=== PATIENT | female | born 1995 | race Two or more races ===

== ENCOUNTER 2016-11-29 16:38 | Outpatient (CLI) | payer OTHER ==
[~2016-11-29] VITALS: Ht 167.6 cm; Wt 53.4 kg
[2016-11-29 16:46] VITALS: Ht 167.6 cm; Wt 53.4 kg
[2016-11-29] MEDS ORDERED: LACTATED RINGER'S 1,000 ML IV* SCH (18:00)
[2016-11-29 18:38] LABS: ADD SCAN DIFF NO
[2016-11-29 18:39] LABS: BASOPHILS % 0.1 % (0.0-2.0); EOSINOPHILS % 0.1 % (0.0-7.0); HEMATOCRIT 30.4 % (37.0-47.0); HEMOGLOBIN 10.6 g/dl (12.0-16.0); LYMPHOCYTES # 0.7 10^3/ul (0.8-2.9); LYMPHOCYTES % 6.5 % (18.0-55.0); MEAN CORPUSCULAR HEMOGLOBIN 30.5 pg (29.0-33.0); MEAN CORPUSCULAR HGB CONC 34.9 g/dl (32.0-37.0); MEAN CORPUSCULAR VOLUME 87.6 fl (72.0-104.0); MEAN PLATELET VOLUME 10.1 fl (7.4-10.4); MONOCYTE # 1.4 10^3/ul (0.3-0.9); NEUTROPHIL # 8.4 10^3/ul (1.6-7.5); NEUTROPHILS % 79.4 % (30.0-74.0); PLATELET COUNT 288 10^3/UL (140-415); RED BLOOD COUNT 3.47 10^6/ul (4.20-5.40); RED CELL DISTRIBUTION WIDTH 14.3 % (11.5-14.5); WHITE BLOOD COUNT 10.6 10^3/ul (4.8-10.8)
[2016-11-29 18:46] LABS: ADD UMIC YES; URINE BILIRUBIN (Dip) NEGATIVE (NEGATIVE); URINE BLOOD (Dip) 2+ (NEGATIVE); URINE KETONES (Dip) NEGATIVE (NEGATIVE); URINE LEUKOCYTE ESTERASE (Dip) 3+ (NEGATIVE); URINE NITRITE (Dip) NEGATIVE (NEGATIVE); URINE TOTAL PROTEIN (Dip) 1+ (NEGATIVE); URINE UROBILINOGEN (Dip) 1.0 E.U./dL (0.1-1.0)
[2016-11-29 19:08] LABS: URINE COLOR YEL (YELLOW)
[2016-11-29 19:15] LABS: BACTERIA,URINE MANY; SQUAMOUS EPITHELIAL CELL,UR FEW
[2016-11-29] MEDS ORDERED: CEFAZOLIN 2 GM/50 ML (PMX) 50 ML IVPB ONE (20:00)
[2016-11-29] MEDS ORDERED: ACETAMINOPHEN 1000MG/100ML IV 100 ML IVPB ONE (20:00)
--- NOTE | 2016-11-29 20:08 | QN ---
Documentation Comment Laborist Dr Muñoz's pt 21 y.o. G1 with an IUP at 21 weeks came in with c/o a cold with fever and headache. She says her temperature at home was 102. +FM. Denies dysuria. Reports all over body aches, not flank pain specifically. No urgency or frequency. PMHx: none. PSHx: none. NKDA. BP 114/70 T=99.3/100.4 No CVAT. Fundus NT. FHT's in the 140's. No UC's noted on the monitor. WBC 10.6 Hgb 10.6 U/A cloudy with 2+blood, 3+ leukocytes, lots of WBC's and bacteria. A: IUP at 21 weeks. Viral syndrome, flu or other. UTI. P: IV hydration. IV Ancef 2 grams x 1. IV Tylenol 1 gram. When feels better will d/c home with a Rx for Macrobid 100 BID x 7 days. Urine cx done, for follow-up by her doctor. KARON ROMO MD November 29, 2016 20:08
--- NOTE | 2016-11-29 22:32 | TRIAGE ---
OB Triage Datetime Report Generated by CPN: 11/29/2016 22:32 Datetime: 11/29/2016 19:45 Stage of : OB Triage Maternal Assessment Level of Consciousness: Fully Conscious Headache: Denies Blurred Vision: No RUQ Epigastric Pain: Denies Monitor Mode: External Pattern: Normal: <= 5 Contractions in 10 Minutes Resting Tone [place]: Relaxed Pain Presence: Constant Pain Type: Ache Datetime: 11/29/2016 17:51 Heart Rate FHR Baseline Rate: 150 Comments: u/s removed Datetime: 11/29/2016 17:49 Heart Rate FHR Baseline Rate: 150 Monitor Mode: External US FHR Baseline Changes: No Baseline Change Datetime: 11/29/2016 17:47 Headache: Frontal Labor Evaluation Frequency: none Pattern: Normal: <= 5 Contractions in 10 Minutes Resting Tone [place]: Relaxed Heart Rate FHR Baseline Rate: 148 Datetime: 11/29/2016 17:19 Labor Evaluation Frequency: none Pattern: Tachysystole: > 5 Contractions in 10 Minutes Resting Tone [place]: Relaxed Heart Rate FHR Baseline Rate: 145 Monitor Mode: External US Pain Presence: None/Denies Datetime: 11/29/2016 17:11 Stage of : OB Triage Headache: Frontal Blurred Vision: No Respiratory Effort: Unlabored Breath Sounds, Left: Clear and Equal Labor Evaluation Frequency: none Monitor Mode: External Heart Rate FHR Baseline Rate: 145 Monitor Mode: External US Pain Assessment Pain Scale: 0 Pain Presence: None/Denies Pain Type: N/A Pain Location: Abdomen Datetime: 11/29/2016 16:47 Time of Arrival: 11/29/2016 19:47 EGA: 21.0 Chief Complaint: fever/ headache/ colds Movement: Present Contractions: Denies/Absent Rupture of Membranes: Denies Vaginal Discharge: Denies Recent Sexual Intercouse: Denies Abdominal Trauma: Not Applicable Patient Complaints: Headache; Fever; Other Time Provider Notified: 11/29/2016 17:20 Provider Notified: Dr Muñoz Initial Plan: ext toco, intermitent u/s
== END 2016-11-29 22:30 | disposition home or self-care (01) ==
LOC: OBT 16:38 → L-D 16:40 → OBT 22:30
PROVIDERS: ATTEND Obstetrics & Gynecology
DX: O98.512 Other viral diseases complicating pregnancy, second trimester (principal); B34.9 Viral infection, unspecified; O23.42 Unspecified infection of urinary tract in pregnancy, second trimester; B96.89 Other specified bacterial agents as the cause of diseases classified elsewhere; Z3A.21 21 weeks gestation of pregnancy
CPT/HCPCS: 36415; 81001; 85025; 87086; 96360; 96361; 96365; 96367; J0131; J0690; J7120; Z7500; 81003; G0463

== ENCOUNTER 2017-04-18 00:19 | Inpatient (IN) | payer OTHER ==
[~2017-04-18] VITALS: Ht 170.2 cm; Wt 66.3 kg
[2017-04-18 00:35] VITALS: Ht 170.2 cm; Wt 66.3 kg
[2017-04-18 00:36] VITALS: BP 118/56; PULSE 89; RESP 18
[2017-04-18] MEDS ORDERED: OXYTOCIN 30 UNITS/LR 500 ML IV PRN ×2 (01:00→11:30)
[2017-04-18] MEDS ORDERED: LIDOCAINE 1% (MPF) 30 ML INJ INJ PRN (01:00)
[2017-04-18] MEDS ORDERED: MISOPROSTOL 200 MCG TAB PR PRN ×2 (01:00→11:30)
[2017-04-18] MEDS ORDERED: AMPICILLIN 2 GM/NS (PMX) 100 ML IV ONE (01:00)
[2017-04-18] MEDS ORDERED: CARBOPROST 250 MCG INJ IM PRN ×2 (01:00→11:30)
[2017-04-18] MEDS ORDERED: OXYTOCIN 30 UNITS/LR 500 ML IV SCH (01:00)
[2017-04-18] MEDS ORDERED: METHYLERGONOVINE 0.2 MG INJ IM PRN ×2 (01:00→11:30)
[2017-04-18] MEDS ORDERED: BUTORPHANOL 2 MG INJ IV PRN (01:00)
[2017-04-18] MEDS: LACTATED RINGER'S 1,000 ML IV SCH ×2 (01:17→05:15)
[2017-04-18 01:38] LABS: BASOPHILS % 0.3 % (0.0-2.0); EOSINOPHILS % 0.3 % (0.0-7.0); HEMATOCRIT 30.3 % (37.0-47.0); HEMOGLOBIN 9.4 g/dl (12.0-16.0); LYMPHOCYTES # 2.2 10^3/ul (0.8-2.9); LYMPHOCYTES % 20.5 % (18.0-55.0); MEAN CORPUSCULAR HEMOGLOBIN 23.4 pg (29.0-33.0); MEAN CORPUSCULAR VOLUME 75.6 fl (72.0-104.0); MEAN PLATELET VOLUME 11.8 fl (7.4-10.4); MONOCYTE # 0.9 10^3/ul (0.3-0.9); MONOCYTES % 7.9 % (0.0-13.0); NEUTROPHIL # 7.7 10^3/ul (1.6-7.5); NEUTROPHILS % 70.6 % (30.0-74.0); PLATELET COUNT 306 10^3/UL (140-415); RED BLOOD COUNT 4.01 10^6/ul (4.20-5.40); RED CELL DISTRIBUTION WIDTH 15.7 % (11.5-14.5); WHITE BLOOD COUNT 10.9 10^3/ul (4.8-10.8)
[2017-04-18 01:50] LABS: PARTIAL THROMBOPLASTIN TIME 24.4 Sec (25.0-35.0)
[2017-04-18 03:03] LABS: INR 0.9; PROTIME 12.2 Sec (12.2-14.2)
[2017-04-18] MEDS ORDERED: FENTAnyl 2MCG/ML-ROPIV 0.2% 100 ML ONE (03:07)
[2017-04-18] MEDS ORDERED: FENTAnyl 2MCG/ML-ROPIV 0.2% 100 ML BAG EPI SCH (03:30)
[2017-04-18] MEDS ORDERED: NALOXONE (0.4 MG/ML) INJ IV PRN (03:30)
--- NOTE | 2017-04-18 04:28 | TRIAGE ---
OB Triage Datetime Report Generated by CPN: 04/18/2017 04:27 Datetime: 04/18/2017 03:26 Vaginal Exam Dilatation (cms): 5.0 Effacement (%): 90 Station: -2 Exam By: b. alabado RN Datetime: 04/18/2017 03:14 Pain Assessment Pain Scale: 6 Pain Presence: Intermittent Pain Type: Contraction Pain Goal: 0 Pain Relief Measures: Epidural Given Datetime: 04/18/2017 02:33 Interventions: Side to Side Monitor Mode: External US Decelerations: Variable Datetime: 04/18/2017 02:23 Vaginal Exam Dilatation (cms): 3.0 Effacement (%): 80 Station: -2 Exam By: MARIELOS COLLINS Membrane Status: Intact Vaginal Bleeding: None Cervix, Consistency: Moderate Cervix, Position: Midposition Presentation 'A': Cephalic Datetime: 04/18/2017 02:13 Interventions: Side to Side; Oxygen Applied; IV Bolus Monitor Mode: External US Decelerations: Variable Datetime: 04/18/2017 01:59 Labor Evaluation Frequency: 1-6 Monitor Mode: External Duration (sec)2399: 40-140 Quality: Moderate Pattern: Normal: <= 5 Contractions in 10 Minutes Resting Tone [place]: Relaxed Interventions: Side to Side; Oxygen Applied Heart Rate FHR Baseline Rate: 155 Monitor Mode: External US FHR Baseline Changes: No Baseline Change Variability: Moderate 6-25 bpm Accelerations: 15X15 Decelerations: Variable Category: Category II Datetime: 04/18/2017 01:44 Interventions: Side to Side; Oxygen Applied Monitor Mode: External US Decelerations: Variable Datetime: 04/18/2017 01:36 Time of Arrival: 04/18/2017 01:00 EGA: 39.5 Arrived By: Ambulatory Arrived From: TRIAGE Datetime: 04/18/2017 01:29 Interventions: Side to Side; Oxygen Applied Monitor Mode: External US Decelerations: Variable Datetime: 04/18/2017 01:08 Stage of : Labor Datetime: 04/18/2017 01:04 Assessment Type: Admission Assessment Maternal Assessment Level of Consciousness: Fully Conscious DTR's/Clonus: DTRs 2+; No Clonus Headache: Denies Blurred Vision: No Respiratory Effort: Unlabored; Regular Rhythm; Equal Expansion Breath Sounds, Left: Clear and Equal Breath Sounds, Right: Clear and Equal Nausea/Vomiting: Denies RUQ Epigastric Pain: Denies Lower Extremities Edema: None Degree: None Upper Extremities Edema: None Degree: None Facial Edema: None Fall Risk Assessment History of Falling: (0) No Secondary Diagnosis: (0) No Ambulatory Aid: (0) Bedrest/Nurse Assist IV Therapy: (0) No Gait: (0) Normal/Bedrest/Immobile Mental Status: (0) Oriented to Own Ability Fall Score: 0 Fall Risk Score Definition: No Risk: No action required Pain Assessment Pain Scale: 9 Pain Presence: Intermittent Pain Type: Contraction Pain Location: Abdomen Pain Goal: 0 Datetime: 04/18/2017 00:58 Stage of : OB Triage Datetime: 04/18/2017 00:45 Stage of : OB Triage Maternal Assessment Level of Consciousness: Fully Conscious DTR's/Clonus: DTRs 2+; No Clonus Headache: Denies Breath Sounds, Left: Clear and Equal Breath Sounds, Right: Clear and Equal Nausea/Vomiting: Denies RUQ Epigastric Pain: Denies Temperature Route: Oral Labor Evaluation Frequency: 2-3.5 Monitor Mode: External Duration (sec)2399: 40-60 Quality: Mild Pattern: Normal: <= 5 Contractions in 10 Minutes Resting Tone [place]: Relaxed Interventions: Side to Side; Oxygen Applied Heart Rate FHR Baseline Rate: 135 Monitor Mode: External US Variability: Moderate 6-25 bpm Accelerations: 15X15 Decelerations: Variable Category: Category II Datetime: 04/18/2017 00:40 Stage of : OB Triage Vaginal Exam Dilatation (cms): 3.0 Effacement (%): 70 Station: -2 Exam By: FRANK DUMONT Datetime: 04/18/2017 00:37 Comments: VARIABLE DECEL AUDIBLE, AND REPOSITON PT TO LFET LATERAL. 10L O2 WITH MASK APPLIED, EFM READJUSTED. Datetime: 04/18/2017 00:34 EGA: 39.5 Datetime: 04/18/2017 00:25 Time of Arrival: 04/18/2017 00:20 Arrived By: Wheelchair Arrived From: Home Chief Complaint: PT C/O ABDOMEN PAIN Movement: Present Contractions: Irregular Time Contractions Began: 04/17/2017 15:00 Rupture of Membranes: Denies Vaginal Bleeding: None Vaginal Discharge: Denies Recent Sexual Intercouse: Denies Abdominal Trauma: Not Applicable Patient Complaints: Contractions Additional Patient Complaints: TOCO AND EFM APPLY, JO AND KENZIE JAMISON. Time Provider Notified: 04/18/2017 00:45 Provider Notified: DR RAMIREZ
[2017-04-18] MEDS ORDERED: AMPICILLIN 1 GM/NS (PMX) 50 ML IV SCH (05:00)
[2017-04-18] MEDS ORDERED: LACTATED RINGER'S 1,000 ML IV PRN (08:00)
[2017-04-18] MEDS: OXYTOCIN 30 UNITS/LR 500 ML IV SCH ×4 (08:21→17:15)
[2017-04-18 11:00] VITALS: BP 118/64; PULSE 67; RESP 18
--- NOTE | 2017-04-18 11:14 | LDN ---
Date/Time of Note Date/Time of Note DATE: 04/18/17 TIME: 11:14 Delivery Summary term preg NSD Placenta Delivered: Spontaneously Meconium: Thick Perineal laceration: 1 Anesthesia type: Epidural Estimated blood loss: 300 Sponge & Needle done & correct: Yes All needle counts correct: Yes Problems: CHRISTIANNE TYLER MD Apr 18, 2017 11:14
--- NOTE | 2017-04-18 11:14 | HP ---
Date/Time of Note Date/Time of Note DATE: 04/18/17 TIME: 11:13 OB - History Hx of Present Free Text/Dictation term preg in labor Care: Good Care Ultrasounds: Normal mid trimester US Obstetrical Complications: None Medical Complications: None Past Family/Social History * Past Medical, Surgical, Family and Obstetric Histories reviewed from chart. OB Admission Exam Vital Signs Vital Signs Vital Signs Date Time Temp Pulse Resp B/P Pulse Ox O2 Delivery O2 Flow Rate FiO2 04/18/17 00:36 97.6 89 18 118/56 Room Air Physical Exam HEENT: WNL Heart: Rhythm Normal Lungs: Clear, Equal Abdomen: WNL Extremities: Normal Reflexes: Normal Cervical Dilatation: 10cm Effacement: 100% Station: +2 Membranes: Ruptured Amniotic Fluid: Thick Meconium Accelerations: Accelerations Present Decelerations: No Decelerations Varibility: Marked Contractions on Admission: 6-10 Minutes Apart Last 72 hours Lab Results CBC & BMP 04/18/17 01:08 OB Assessment/Plan Reason for admission: active labor Plan: Expectant Management CHRISTIANNE TYLER MD Apr 18, 2017 11:14
[2017-04-18] MEDS ORDERED: LACTATED RINGER'S 1,000 ML IV* SCH (11:18)
[2017-04-18] MEDS ORDERED: BENZOCAINE 20% 56 ML SPRAY TOP PRN (11:30)
[2017-04-18] MEDS ORDERED: MAGNESIUM HYDROXIDE 30ML CUP PO PRN (11:30)
[2017-04-18] MEDS ORDERED: HYDROCODONE/APAP (5/325) TAB PO PRN (11:30)
[2017-04-18] MEDS ORDERED: DIPHENHYDRAMINE 25 MG CAP PO PRN (11:30)
[2017-04-18] MEDS ORDERED: SENNA/DOCUSATE NA (8.6MG/50MG) TAB PO PRN (11:30)
[2017-04-18] MEDS ORDERED: LANOLIN 7 GM TUBE TOP PRN (11:30)
[2017-04-18] MEDS ORDERED: ZOLPIDEM 5 MG TAB PO PRN (11:30)
[2017-04-18] MEDS ORDERED: ACETAMINOPHEN 325 MG TAB PO PRN (11:30)
[2017-04-18] MEDS ORDERED: WITCH HAZEL/GLYCERIN PAD PR PRN (11:30)
[2017-04-18] MEDS: IBUPROFEN 800 MG TAB PO SCH ×2 (12:59→17:13)
[2017-04-18 16:01] VITALS: BP 117/71; PULSE 68; RESP 18
[2017-04-18 19:20] VITALS: BP 110/70; PULSE 69; RESP 18
[2017-04-19] MEDS: IBUPROFEN 800 MG TAB PO SCH ×4 (00:48→17:20)
[2017-04-19 04:00] VITALS: BP 110/79; PULSE 79; RESP 18
[2017-04-19 09:10] VITALS: BP 119/68; PULSE 64; RESP 18
[2017-04-19 11:19] LABS: BASOPHILS % 0.3 % (0.0-2.0); EOSINOPHILS # 0.1 10^3/ul (0.0-0.5); EOSINOPHILS % 0.9 % (0.0-7.0); HEMOGLOBIN 8.1 g/dl (12.0-16.0); LYMPHOCYTES # 2.1 10^3/ul (0.8-2.9); LYMPHOCYTES % 21.3 % (18.0-55.0); MEAN CORPUSCULAR HEMOGLOBIN 22.8 pg (29.0-33.0); MEAN CORPUSCULAR VOLUME 75.8 fl (72.0-104.0); MEAN PLATELET VOLUME 11.8 fl (7.4-10.4); MONOCYTE # 0.6 10^3/ul (0.3-0.9); MONOCYTES % 6.5 % (0.0-13.0); NEUTROPHIL # 6.9 10^3/ul (1.6-7.5); NEUTROPHILS % 70.6 % (30.0-74.0); PLATELET COUNT 254 10^3/UL (140-415); RED BLOOD COUNT 3.56 10^6/ul (4.20-5.40); WHITE BLOOD COUNT 9.8 10^3/ul (4.8-10.8)
[2017-04-19 16:50] VITALS: BP 113/70; PULSE 70; RESP 18
--- NOTE | 2017-04-19 17:41 | DS ---
Date/Time of Note Date/Time of Note DATE: 04/19/17 TIME: 17:40 Discharge Summary Admission/Discharge Info Admit Date/Time Apr 18, 2017 at 00:45 Discharge Date/Time Discharge Diagnosis TERM PREG Patient Condition: Stable Hospital Course UNREMARKABLE Home Meds No Active Prescriptions or Reported Meds Primary Care Provider Og Webster MD Pending Labs Laboratory Tests Test 04/19/17 10:31 White Blood Count 9.810^3/ul (4.8-10.8) Red Blood Count 3.5610^6/ul (4.20-5.40) Hemoglobin 8.1g/dl (12.0-16.0) Hematocrit 27.0% (37.0-47.0) Mean Corpuscular Volume 75.8fl (72.0-104.0) Mean Corpuscular Hemoglobin 22.8pg (29.0-33.0) Mean Corpuscular Hemoglobin Concent 30.0g/dl (32.0-37.0) Red Cell Distribution Width 16.0% (11.5-14.5) Platelet Count 18196^3/UL (140-415) Mean Platelet Volume 11.8fl (7.4-10.4) Neutrophils % 70.6% (30.0-74.0) Lymphocytes % 21.3% (18.0-55.0) Monocytes % 6.5% (0.0-13.0) Eosinophils % 0.9% (0.0-7.0) Basophils % 0.3% (0.0-2.0) Nucleated Red Blood Cells % 0.0/100WBC (0.0-0.0) Neutrophils # 6.910^3/ul (1.6-7.5) Lymphocytes # 2.110^3/ul (0.8-2.9) Monocytes # 0.610^3/ul (0.3-0.9) Eosinophils # 0.110^3/ul (0.0-0.5) Basophils # 0.010^3/ul (0.0-0.1) Nucleated Red Blood Cells # 0.010^3/ul (0.0-0.0) CHRISTIANNE TYLER MD Apr 19, 2017 17:41
[2017-04-20] MEDS: IBUPROFEN 800 MG TAB PO SCH ×3 (00:28→12:00)
[2017-04-20 04:00] VITALS: BP 110/75; PULSE 69; RESP 18
[2017-04-20] MEDS ORDERED: MEASLES,MUMPS,RUBELLA VACCINE INJ SC* ONE (09:00)
[2017-04-20] MEDS ORDERED: VARICELLA VACCINE LIVE/PF 1,350 UNIT/0.5 ML ML SC* ONE (09:00)
[2017-04-20] MEDS ORDERED: DIPHTH/TET/ACEL PERTUSS (ADULT) 0.5 ML VIAL IM* ONE (09:00)
== END 2017-04-20 15:35 | disposition home or self-care (01) | DRG 775 ==
LOC: OBT 00:19 → L-D 00:20 → OBT 00:45 → PP1 11:02
PROVIDERS: ADMIT Obstetrics & Gynecology; ATTEND Obstetrics & Gynecology
PROC: 10E0XZZ Delivery of Products of Conception, External Approach (ICD-10-PCS; principal; 2017-04-18)
PROC: 0HQ9XZZ Repair Perineum Skin, External Approach (ICD-10-PCS; 2017-04-18)
DX: O77.0 Labor and delivery complicated by meconium in amniotic fluid (principal); O70.0 First degree perineal laceration during delivery; Z3A.00 Weeks of gestation of pregnancy not specified; Z37.0 Single live birth
CPT/HCPCS: 62319; 85025; 85610; 85730; 86592; 86900; 86901; 87340; 88307; 90715; 90716; 99464; G0463; J0290; J2590; J3010; J7120

== ENCOUNTER 2017-11-07 15:44 | Emergency (ER) | END 2017-11-07 20:28 | disposition home or self-care (01) ==